=== PATIENT | male | born 1980 | race Caucasian/White ===

== ENCOUNTER 2017-07-25 11:49 | Outpatient (CLI) | payer OTHER ==
[2017-07-25 12:21] LABS: BASOPHILS % (AUTO) 0.5 %; EOSINOPHILS # (AUTO) 0.3 10^3/uL (0.0-0.7); EOSINOPHILS % (AUTO) 3.5 %; HGB - HEMOGLOBIN 14.3 g/dL (14.0-18.0); LYMPHOCYTES # (AUTO) 2.2 10^3/uL (1.5-3.5); LYMPHOCYTES % (AUTO) 26.4 %; MEAN CORPUSCULAR HEMOGLOBIN 29.7 pg (27.0-31.0); MEAN CORPUSCULAR HGB CONC 33.7 g/dL (32.0-36.0); MEAN CORPUSCULAR VOLUME 88.2 fL (80.0-94.0); MEAN PLATELET VOLUME 7.5 fL (7.4-11.4); MONOCYTES # (AUTO) 0.8 10^3/uL (0.0-1.0); MONOCYTES % (AUTO) 9.4 %; NEUTROPHILS % (AUTO) 60.2 %; PLT - PLATELET COUNT 250 10^3/uL (130-450); RED BLOOD COUNT 4.81 10^6/uL (4.70-6.10); RED CELL DISTRIBUTION WIDTH 13.7 % (12.0-15.0); WHITE BLOOD COUNT 8.4 x10^3/uL (4.8-10.8)
--- NOTE | 2017-07-25 14:48 | XRAY Report ---
TWO VIEW CHEST: 07/25/2017 CLINICAL INDICATION: Cough. FINDINGS: Frontal and lateral views of the chest demonstrate a normal cardiac silhouette. The lungs are clear. No effusion or pneumothorax is present. IMPRESSION: NORMAL CHEST. TD: 07/25/2017 14:10
== END 2017-07-25 11:50 | disposition home or self-care (01) ==
LOC: LAB 11:49 → DI 11:50
PROVIDERS: ATTEND Internal Medicine Gastroenterology
DX: R05 Cough (principal); Z86.14 Personal history of Methicillin resistant Staphylococcus aureus infection
CPT/HCPCS: 36415; 71046; 85025; 87640

== ENCOUNTER 2017-08-13 06:06 | Day surgery (SDC) | payer OTHER ==
[2017-08-13] MEDS ORDERED: ceFAZolin 3 GM/20 ML SYRINGE ONE (06:43)
[2017-08-13] MEDS ORDERED: LACTATED RINGERS 1,000 ML IV ONE ×2 (07:04→08:03)
[2017-08-13] MEDS ORDERED: BUPIVACAINE 0.5% PF 30 ML VIAL ONE (07:19)
[2017-08-13] MEDS ORDERED: ceFAZolin 1 GM VIAL ONE (07:23)
[2017-08-13] MEDS ORDERED: BUPIVACAINE 0.5% PF 30 ML VIAL INFIL ONE ×2 (07:47)
[2017-08-13] MEDS ORDERED: LIDOCAINE 1%-EPI 1:100000 30 ML MDV ONE (07:56)
[2017-08-13] MEDS ORDERED: MIDAZOLAM 2 MG/2 ML VIAL IVP ONE (08:00)
[2017-08-13] MEDS ORDERED: DEXAMETHASONE 4 MG/ML VIAL IVP ONE (08:00)
[2017-08-13] MEDS ORDERED: ONDANSETRON 4 MG/2 ML VIAL IVP ONE (08:00)
[2017-08-13] MEDS ORDERED: PROPOFOL 200 MG/20 ML VIAL IVP ONE (08:00)
[2017-08-13] MEDS ORDERED: LIDOCAINE-MPF 2% 5 ML VIAL IM ONE (08:00)
[2017-08-13] MEDS ORDERED: KETOROLAC 30 MG/ML VIAL IVP ONE (08:00)
[2017-08-13] MEDS ORDERED: fentaNYL 100 MCG/2 ML VIAL IVP ONE (08:00)
[2017-08-13] MEDS ORDERED: ACETAMINOPHEN 1,000 MG/100 ML 100 ML IV ONE (09:02)
[2017-08-13] MEDS ORDERED: oxyCOD/ACETAMIN 5 MG/325 MG TABLET PO ONE (09:36)
[2017-08-13 10:03] VITALS: BP 128/71
--- NOTE | 2017-08-13 10:28 | OPERATIVE REPORT ---
DATE OF SERVICE: 08/13/2017 Physician: Toro Narayan MD PREOPERATIVE DIAGNOSIS: Symptomatic incarcerated umbilical hernia. POSTOPERATIVE DIAGNOSIS: Symptomatic incarcerated umbilical hernia. PROCEDURE PERFORMED: Open repair of same with Ventralex ST hernia patch. ANESTHESIA: Local plus monitored anesthesia care. SURGEON: Toro Narayan MD ESTIMATED BLOOD LOSS: Minimal. DRAINS: None. COMPLICATIONS: None. FINDINGS: Preperitoneal fat and omentum were incarcerated in a hernia sac approximately 4 cm in diameter. The fascial defect was approximately 2 cm in diameter. The incarcerated tissue was viable. INDICATIONS: Patient is a 36-year-old gentleman with recent onset of an increasingly painful irreducible umbilical bulge. 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 He was advised to undergo repair with mesh to reduce the risk of recurrence. TECHNIQUE: After informed consent, the patient was taken to the operating room , where he was sedated monitored. Preoperative preparation included application of sequential calf compression boots and 3 grams of cefazolin intravenously within an hour of the incision. His abdomen was prepared with ChloraPrep solution and draped in the usual sterile fashion; 40 mL of a 50:50 combination of 1% lidocaine with epinephrine and 0.5% Marcaine plain was used for local anesthesia. A curvilinear transverse incision was made above the umbilicus, approximately 5- 6 cm in length, and carried down through subcutaneous tissues. Hemostasis was achieved with electrocautery. The umbilical dermis was dissected off the hernia sac. The hernia sac was mobilized circumferentially. The anterior fascia was exposed circumferentially around the neck of the hernia sac. The hernia sac was excised and discarded. After mobilizing the fascial edges circumferentially, the hernia contents were able to be reduced into the peritoneal cavity, and after clearing the preperitoneal surfaces circumferentially and hemostasis assured, a Ventralex ST hernia patch size small was inserted into the preperitoneal space and held anteriorly by the strap while fascial closure was accomplished transversely with interrupted 0 Ethibond sutures. A total of 5 sutures were used. The excess strap was excised. After hemostasis was assured, the wound was irrigated with antibiotic solution consisting of 1 gram cefazolin per 500 mL Wound closure was then accomplished in layers using 2-0 Vicryl to reapproximate the umbilical dermis to the anterior fascia and also reapproximate the deep subcutaneous tissues. 3-0 Vicryl was used to reapproximate superficial subcutaneous tissues, and 4-0 Monocryl subcuticular skin closure followed by Dermabond completed wound closure. The procedure was terminated and the patient transferred out of the operating room in satisfactory condition. Sponge and instrument counts were correct x2. No drains were used. TD: 08/13/2017 09:06 MEAGHAN
== END 2017-08-13 06:07 | disposition home or self-care (01) ==
LOC: SDS 06:06
PROVIDERS: ATTEND Internal Medicine Gastroenterology
PROC: 0WUF0JZ Supplement Abdominal Wall with Synthetic Substitute, Open Approach (ICD-10-PCS; principal; 2017-08-13 07:30)
DX: K42.0 Umbilical hernia with obstruction, without gangrene (principal)
CPT/HCPCS: 49587; A9270; C1781; J0131; J7120

== ENCOUNTER 2018-02-09 08:00 | Outpatient (CLI) | payer OTHER ==
[2018-02-09 19:02] LABS: H. PYLORIS ANTIGEN STL NEGATIVE (Negative)
== END 2018-02-09 23:59 | disposition home or self-care (01) ==
LOC: LAB.R 08:00
PROVIDERS: ATTEND Registered Nurse
DX: K29.00 Acute gastritis without bleeding (principal)
CPT/HCPCS: 87338